=== PATIENT | male | born 1985 | race Caucasian/White ===

== ENCOUNTER 2024-10-08 12:12 | Emergency (ER) | payer BC, SELFPAY ==
[2024-10-08 12:20] VITALS: BP 157/97
[2024-10-08 13:01] LABS: ALT (SGPT) 44 U/L (0-50); AST (SGOT) 28 U/L (17-59); Alkaline Phosphatase 49 U/L (38-126); Blood Urea Nitrogen 20 mg/dl (9-20); Calcium 9.7 mg/dl (8.4-10.2); Carbon Dioxide 25 mmol/L (22-30); Chloride 99 mmol/L (98-107); Glucose 112 mg/dl (70-99); Potassium 4.7 mmol/L (3.5-5.1); Sodium 138 mmol/L (135-145); Total Bilirubin 2.2 mg/dl (0.2-1.3); Total Protein 7.8 g/dl (6.3-8.2); eGFR > 60.00
[2024-10-08 13:02] LABS: % Basophils 0.3 % (0-2); % Eosinophils 0.1 % (0-6); % Immature Granulocytes 0.4 % (0-0.5); % Lymphocytes 2.6 % (20.5-51.1); % Monocytes 4.1 % (1.7-9.3); % Neutrophils 92.5 % (42.2-75.2); Absolute Immature Granulocytes 0.1 10^3/uL (0-0.05); Absolute Lymphocytes 0.3 10^3/uL (1.2-3.4); Absolute Monocytes 0.5 10^3/uL (0.1-0.6); Hematocrit 49.4 % (39.0-52.0); Hemoglobin 17.9 g/dL (13.0-18.0); Mean Corp Hgb Conc. 36.2 g/dL (33.0-37.0); Mean Corpuscular Hgb 31.2 pg (27.0-31.0); Mean Corpuscular Volume 86.1 fL (80.0-94.0); Mean Platelet Volume 9.8 fL (7.4-10.4); Nucleated Red Blood Cells % 0 % (-); Platelet Count 237 10^3/uL (130-400); Red Blood Cell Count 5.74 10^6/uL (4.70-6.10); White Blood Cell Count 12.9 10^3/uL (4.8-10.8)
--- NOTE | 2024-10-08 14:04 | ED.GENMED ---
History of Present Illness
General
Chief Complaint: Abdominal Pain
Source: patient
Exam Limitations: none
Time Seen by Provider: 10/08/24 13:38
Nursing documentation reviewed up to this point in time: agreed with
History of Present Illness
History of Present Illness:
39-year-old male presents emergency department complaining of right upper quadrant abdominal pain, nausea but no vomiting. He also had a loose bowel movement this morning. He states the pain is easing some.
Past History
Past History
ED Past Medical History: HTN and Psychiatric (Anxiety)
ED Past Surgical History: Other ([place] teeth)
Social History
Tobacco: Non-smoker
Alcohol: None
Drug: None
Employment: Employed
Review of Systems
Review of Systems
Allergies reviewed?: Yes
All Other Systems: Not applicable
Constitutional: Reports no symptoms
EENT: Reports no symptoms
Respiratory: Reports no symptoms
Cardiac: Reports no symptoms
ABD/GI: Reports abdominal pain and nausea
: Reports no symptoms
Musculoskeletal: Reports no symptoms
Skin: Reports no symptoms
Neurological: Reports no symptoms
Endocrine: Reports no symptoms
Hematologic/Lymphatic: Reports no symptoms
Psychiatric: Reports no symptoms
Phy Exam
Physical Exam
Physical Exam:
Physical Exam
General: no apparent distress, not acutely ill
Neck: supple. no meningeal signs. normal posterior pharynx
Heart: s1/s2 regular rate and rhythm, no murmur. equal radial
pulses.
HEENT: Pupils equal round reactive to light, EOMI
Lungs: no acute respiratory distress. clear bilaterally
Abdomen: normal bowel sounds. Mild right upper quadrant tenderness. no CVAT
Neuro: alert and oriented. no focal neurological deficits cranial nerves II through XII intact
Skin: no rash
Psychiatric: well kept. interactive and cooperative
Extremities: no edema. no calf tenderness. negative homans. good distal pulses
Course
Orders/Labs/Results
Orders:
Orders
10/08/24 12:24
Electrocardiogram (*1) Urgent
Reason for Study: Tachycardia
10/08/24 12:25
EKG- Treatment ONCE
10/08/24 12:29
Complete Blood Count/With Diff Urgent
Comprehensive Metabolic Panel Urgent
Lipase Urgent
Comment: ADD ON
10/08/24 13:51
US Abdomen Complete/Upper Urgent
Comment:
Reason For Exam: RUQ pain, n/v
10/08/24 14:07
Add On- LAB Urgent
Tests Added?: lipase
Abnormal Lab Results
10/08/24
12:29
WBC 12.9 H 10^3/uL
(4.8-10.8)
MCH 31.2 H pg
(27.0-31.0)
Abs Immat Gran (auto) 0.1 H 10^3/uL
(0-0.05)
Absolute Neuts (auto) 12.0 H 10^3/uL
(1.4-6.5)
Absolute Lymphs (auto) 0.3 L 10^3/uL
(1.2-3.4)
Neutrophils % 92.5 H %
(42.2-75.2)
Lymphocytes % 2.6 L %
(20.5-51.1)
Glucose 112 H mg/dl
(70-99)
Total Bilirubin 2.2 H mg/dl
(0.2-1.3)
10/08/24 12:29
10/08/24 12:29
Vital Signs
Initial and Last Documented VS:
Initial Vital Signs
Temp Pulse Resp BP Pulse Ox
98.4 F 134 18 157/97 100
10/08/24 12:20 10/08/24 12:20 10/08/24 12:20 10/08/24 12:20 10/08/24 12:20
Last Documented Vital Signs
Temp Pulse Resp BP Pulse Ox
98.4 F 118 20 135/93 97
10/08/24 12:20 10/08/24 16:00 10/08/24 16:00 10/08/24 16:00 10/08/24 16:00
MDM/Problems Addressed
Differential Diagnosis Includes:
Cholecystitis, pancreatitis
MDM/Problems Addressed:
39-year-old male with likely biliary colic. Symptoms dissipated. Doubt choledocholithiasis or cholecystitis. Patient to follow-up with general surgery. Return precautions given.
Chronic conditions affecting care: HTN
*Radiology
Radiology exam reviewed: radiology read reviewed (Ultrasound shows splenomegaly, fatty infiltrate of liver, biliary sludge and gallbladder)
*Pulse Oximetry
Patient hypoxic: no
*EKG
Interpreted by ED Provider?: Yes
EKG Intrepretation Date: 10/08/24
EKG Intrepretation Time: 12:33
Interpretation: abnormal
Comparison EKG: no comparison EKG present
Heart Rate: 119
Rate: tachycardiac
Rhythm: sinus tachycardia
Mcdowell: normal axis
Interval: normal interval
QRS Pattern: normal QRS
Ischemia: no ischemia
*Trading Floor Operator Interpretation
Rate: Trading Floor Operator- N/A
*Critical Care Note
Total Time (30-74mins, 75-104mins- exclusive of procedures): Not Applicable
Patient Management
Social determinants of health affecting care: Living situation and Strong social support
Escalation/DeEscalation of care consider admission/obs:
admit not indicated
ED Attending Note
-
Portions of this chart may have been created with voice recognition software.� Occasional wrong word or��sound alike� substitutions may have occurred due to the inherent limitations of voice recognition software.
Discharge Plan
Departure
Patient Disposition: Home (Routine Discharge)
Date of Disposition: 10/08/24
Time of Disposition: 16:47
Patient with high blood pressure during this ER visit?: Yes
Condition: Good
Discharge Problem:
Biliary colic
Instructions: Gallstones ED, Abdominal Pain, BLOOD PRESSURE
Referrals:
Gabe Fung MD [Active] - Call in 1-3 days for appt
Dustin Aldana DO [Family Provider] -
Interventions
Interventions:
*Risk Screen - Suicide Last Done: 10/08/24 12:20
*General Assessment Last Done: 10/08/24 12:20
*Neglect/Abuse Screening Last Done: 10/08/24 12:20
*Nursing Disposition Last Done: 10/08/24 17:28
WC-Naxuyu-Kqguequevw Assessment Last Done: 10/08/24 13:41
Discharge Date and Time
Discharge Date/Time: 10/08/24 17:28
Print Language: MEXICAN
[2024-10-08 14:56] LABS: Lipase 59 U/L (23-300)
[2024-10-08 16:00] VITALS: BP 135/93
== END 2024-10-08 17:28 | disposition home or self-care (01) ==
LOC: EMR 12:12
PROVIDERS: Emergency Medicine; EMERGENCY PHYSICIAN Emergency Medicine; FAMILY PHYSICIAN Family Medicine
DX: N23 Unspecified renal colic (principal); R11.2 Nausea with vomiting, unspecified; R16.1 Splenomegaly, not elsewhere classified; K76.0 Fatty (change of) liver, not elsewhere classified; I10 Essential (primary) hypertension; F41.9 Anxiety disorder, unspecified; Z88.0 Allergy status to penicillin; Z91.048 Other nonmedicinal substance allergy status
CPT/HCPCS: 99284; 76700; 80053; 83690; 85025; 93005

== ENCOUNTER 2025-08-25 16:27 | Emergency (ER) | payer BC, SELFPAY ==
[2025-08-25 16:30] VITALS: BP 168/120
[2025-08-25 17:19] LABS: Hematocrit 44.5 % (39.0-52.0); Hemoglobin 16.0 g/dL (13.0-18.0); Mean Corp Hgb Conc. 36.0 g/dL (33.0-37.0); Mean Corpuscular Volume 87.3 fL (80.0-94.0); Nucleated Red Blood Cells % 0 % (-); Platelet Count 196 10^3/uL (130-400); Red Cell Dist. Width 12.4 % (11.5-14.5)
[2025-08-25 17:33] LABS: ALT (SGPT) 32 U/L (0-50); AST (SGOT) 26 U/L (17-59); Albumin 5.0 g/dl (3.5-5.0); Alkaline Phosphatase 50 U/L (38-126); Blood Urea Nitrogen 10 mg/dl (9-20); Calcium 9.4 mg/dl (8.4-10.2); Carbon Dioxide 28 mmol/L (22-30); Chloride 96 mmol/L (98-107); Glucose 101 mg/dl (70-99); Potassium 4.0 mmol/L (3.5-5.1); Sodium 134 mmol/L (135-145); Total Protein 7.8 g/dl (6.3-8.2); eGFR > 60.00
[2025-08-25 17:37] LABS: COVID-19 Antigen Negative (Negative)
[2025-08-25] MEDS: TYLENOL 650 MG PO (18:32)
[2025-08-25] MEDS: MOTRIN 600 MG PO (18:32)
--- NOTE | 2025-08-25 18:43 | ED.GENMED ---
History of Present Illness
General
Chief Complaint: Fever
Time Seen by Provider: 08/25/25 17:42
History of Present Illness
History of Present Illness:
ee MDM
Past History
Past History
ED Past Medical History: HTN and Psychiatric (Anxiety)
ED Past Surgical History: Other ([place] teeth)
Social History
Tobacco: Non-smoker
Alcohol: None
Drug: None
Employment: Employed
Phy Exam
Physical Exam
Physical Exam:
see MDM
Course
Orders/Labs/Results
Orders:
Orders
08/25/25 16:33
CR Chest - 2 Views Urgent
Comment:
Reason For Exam: fever/cough
08/25/25 16:49
COVID-19 Antigen Urgent
Source: Nasal Swab
Complete Blood Count/With Diff Urgent
Comprehensive Metabolic Panel Urgent
Influenza A+B Rapid Molecular Urgent
NINI Source: Nasal Swab
Specimen Description:
08/25/25 17:59
Electrocardiogram (*1) Urgent
Reason for Study: Bradycardia / Tachycardia
EKG- Treatment ONCE
0.9% Sodium Chloride 1000 ml [Nss] 1,000 ml IV BOLUS
Acetaminophen [Tylenol] 650 mg PO NOW STA
Ibuprofen [Motrin] 600 mg PO NOW STA
Abnormal Lab Results
08/25/25
16:49
MCH 31.4 H pg
(27.0-31.0)
Absolute Lymphs (auto) 0.5 L 10^3/uL
(1.2-3.4)
Absolute Monos (auto) 0.8 H 10^3/uL
(0.1-0.6)
Neutrophils % 80.3 H %
(42.2-75.2)
Lymphocytes % 7.0 L %
(20.5-51.1)
Monocytes % 11.1 H %
(1.7-9.3)
Sodium 134 L mmol/L
(135-145)
Chloride 96 L mmol/L
(98-107)
Glucose 101 H mg/dl
(70-99)
Total Bilirubin 1.6 H mg/dl
(0.2-1.3)
08/25/25 16:49
08/25/25 16:49
Vital Signs
Initial and Last Documented VS:
Initial Vital Signs
Temp Pulse Resp BP Pulse Ox
37.2 C 133 20 168/120 98
08/25/25 16:30 08/25/25 16:30 08/25/25 16:30 08/25/25 16:30 08/25/25 16:30
Last Documented Vital Signs
Temp Pulse Resp BP Pulse Ox
37.3 C 100 18 152/95 99
08/25/25 20:02 08/25/25 20:02 08/25/25 20:02 08/25/25 18:55 08/25/25 18:55
MDM/Problems Addressed
Differential Diagnosis Includes:
see mMD
MDM/Problems Addressed:
Note:
CHIEF COMPLAINT(S)
Flu-like symptoms with elevated heart rate.
HISTORY OF PRESENT ILLNESS
The patient is a 40-year-old male who presents with flu-like symptoms after his son had been sick the previous week. The patient began experiencing symptoms 1 week ago, including nasal congestion and a mild cough. he had no fever. Over the past
three days, he reported limited sleep and intense physical activity, including hiking and hunting with friends. He noted his heart rate juan to 135 beats per minute last night while at rest last night, which prompted concern. He took Coricidin for
high blood pressure and some Pedialyte, which resulted in a slight improvement, although his heart rate remained elevated.
The patient was cold this morning but did not check his temperature until the evaluation, which showed a fever of 101�F. He reports coughing up yellow sputum for about a week and began experiencing chest pain on deep breaths last night. There is no
history of blood clots or recent long travel. He denies nausea, vomiting, diarrhea, or sore throat.
pt's son's day care had + flu case
PAST MEDICAL AND SURGICAL HISTORY
Borderline hypertension, currently untreated, with a recent reading of 150/100 mmHg.
CHRONIC MEDICAL CONDITIONS SIGNIFICANTLY AFFECTING CARE
Borderline hypertension.
SOCIAL HISTORY
The patient denies smoking.
REVIEW OF SYSTEMS
- General: Fever, fatigue.
- Respiratory: Cough with yellow sputum production, some discomfrot with coughing
- Cardiovascular: Elevated heart rate noted.
PHYSICAL EXAM
GENERAL: Alert , in no apparent distress, well appearing
EYE: pupils equal and reactive
NECK: Supple
ENT: b/l TM s clear, pharynx erythematous but no tonsillar hypertrophy or exudates
CARDIAC: tachycardia no edema
LUNGS: Clear breath sounds bilaterally, no acute respiratory distress, no wheezes/rales/rhonchi, occ cough
ABDOMEN: Soft, without focal tenderness, no r/g, no cvat, normal bowel sounds
NEUROLOGICAL: Alert and oriented, no focal neuro deficits
SKIN: Warm and dry, skin intact.
MUSCULOSKELETAL: No edema, well perfused.
PSYCH: Normal and appropriate interaction.
Nursing notes reviewed and vital signs reviewed.
PROBLEM LIST
Acute Problems:
- Flu-like symptoms
- Elevated heart rate
- Respiratory symptoms with chest pain on inspiration
- Fever
Chronic Problems:
- Borderline hypertension
PLAN
1. Obtain chest X-ray to rule out pneumonia.
2. Administer a liter of intravenous fluids for rehydration.
3. Administer antipyretics such as acetaminophen or ibuprofen to reduce fever.
4. Monitor heart rate and re-evaluate post-treatment.
5. Consider further diagnostics if heart rate remains elevated or if chest X-ray findings are abnormal.
DIFFERENTIAL DIAGNOSIS
The Differential Diagnosis includes, in no particular order and is not limited to:
1. Influenza
2. Pneumonia
3. Acute viral upper respiratory infection
4. Sinusitis
5. Bronchitis
6. Myocarditis
7. Tachycardia secondary to fever
8. Pulmonary embolism
9. Pericarditis
10. Anxiety/panic attack
CARE-UPDATE
08/25/25 - 20:03
The patients heart rate has decreased from the 130s to approximately 100, aligning with the reduction of fever. EKG results are normal, and overall blood work is satisfactory, with the exception of a positive flu test. The patient has been advised
that the symptoms, including elevated heart rate, are due to the flu. It is anticipated that the patient might feel better in the next day or two, marking the typical course of a flu infection. However, if symptoms such as shortness of breath,
severe chest pain, continuous fever beyond a few more days, or new concerning symptoms arise, a re-evaluation is necessary to rule out complications such as secondary bacterial infection. At present, the patient should manage symptoms with Tylenol
and ibuprofen, with dosing instructions provided. Decongestants or other symptom relief medications containing pseudoephedrine (D) should be avoided due to past adverse reactions, while plain guaifenesin (Mucinex) may be considered for cough
management.
note: pt is low riskf or PE, considered based on tachycardia but with flu diagnosis and improvement with fluids and fever control, it seemed more likely to be related to flu.
pt has had URI ss x 1 week and now has fever, but wonder if he had another viral infection before and then got flu just 2 days ago when his tachycardia started (pt was probably febrile)
no sign of secondary bacterial infection
cxr clear
*Pulse Oximetry
SaO2: 98
Oxygen Mode of Delivery: Room air
Patient hypoxic: no (99)
*Critical Care Note
Total Time (30-74mins, 75-104mins- exclusive of procedures): Not Applicable
ED Attending Note
-
Portions of this chart may have been created with voice recognition software.� Occasional wrong word or��sound alike� substitutions may have occurred due to the inherent limitations of voice recognition software.
Discharge Plan
Departure
Patient Disposition: Home (Routine Discharge)
Date of Disposition: 08/25/25
Time of Disposition: 20:02
Patient with high blood pressure during this ER visit?: No
Condition: Fair
Covid-19: Not Applicable
Discharge Problem:
Influenza A, Tachycardia, Fever
Instructions: Flu in adults - ED (DC), BLOOD PRESSURE
Referrals:
Dustin Aldana DO [Family Provider, Family Practice]
Stand Alone Forms: Return to Work
Activity Restrictions/Additional Instructions:
Your symptoms are probably from the flu which she tested positive for. Take ibuprofen 800 mg, that is 4 [id number] ibuprofens every 8 hours with food for 2 to 3 days as needed for your fevers and aches.
Additionally you can take 2 extra strength Tylenol's every 4-6 hours, that is 3-4 times a day. Do not exceed 4 times a day of this. This is also for fever and pain.
Your next dose of Tylenol can be 10 PM, your next dose of ibuprofen can be 12 midnight or after
Drink plenty of fluids and rest. Stay home until you are fever free for 24 hours. Return for severe worsening cough, shortness of breath, chest pain, passing out, lethargy, vomiting, dehydration etc. Your heart rate elevation was probably just
from the fever and dehydration from the infection. Should this worsen without a fever or you are having any concerns please return. Otherwise follow-up with your doctor as needed
Interventions
Interventions:
*Risk Screen - Suicide Last Done: 08/25/25 16:27
*General Assessment Last Done: 08/25/25 16:30
*Neglect/Abuse Screening Last Done: 08/25/25 20:05
*ED COVID-19 Vaccine History Last Done: 08/25/25 20:05
*ED Influenza Vaccine History Last Done: 08/25/25 20:05
[facility] Risk Assessment Tool Last Done: 08/25/25 18:45
*Nursing Disposition Last Done: 08/25/25 20:35
ED- Neurological Assessment Last Done: 08/25/25 19:30
Discharge Date and Time
Discharge Date/Time: 08/25/25 20:35
Print Language: UKRAINIAN
[2025-08-25] MEDS: NSS 1000 IV (18:45)
[2025-08-25 18:55] VITALS: BP 152/95
== END 2025-08-25 20:35 | disposition home or self-care (01) ==
LOC: EMR 16:27
PROVIDERS: Emergency Medicine; EMERGENCY PHYSICIAN Emergency Medicine; FAMILY PHYSICIAN Family Medicine
DX: J10.1 Influenza due to other identified influenza virus with other respiratory manifestations (principal); I10 Essential (primary) hypertension
CPT/HCPCS: 99284; 96360; 71046; 80053; 85025; 87502; 87811; 93005